=== PATIENT | male | born 1980 | race Caucasian/White ===

== ENCOUNTER 2024-06-30 04:26 | Emergency (ER) | payer OTHER ==
[~2024-06-30] VITALS: Ht 177.8 cm; Wt 84.1 kg
[2024-06-30 04:41] VITALS: BP 162/98; PULSE 86; RESP 19; TEMP 97.3; O2SAT 100
== END 2024-06-30 05:13 ==
LOC: ER 04:27
DX: Z02.89 Encounter for other administrative examinations (principal); V87.7XXA Person injured in collision between other specified motor vehicles (traffic), initial encounter; Y93.89 Activity, other specified; Y92.410 Unspecified street and highway as the place of occurrence of the external cause; Y99.8 Other external cause status
CPT/HCPCS: 99283